=== PATIENT | male | born 1980 | race Caucasian/White ===

== ENCOUNTER 2018-02-17 00:53 | Observation (INO) | payer OTHER, MEDICAID ==
[2018-02-17 00:54] VITALS: BMI 25.7
--- NOTE | 2018-02-17 01:12 | ED PDOC ---
Arrival/HPI - General Time Seen by Provider: 02/17/18 00:57 Historian: Patient - History of Present Illness Narrative History of Present Illness (Text): 02/17/18 01:12 Chalino Oquendo is a 37 year old male, whose past medical history includes sickle cell disease, who presents to the Emergency department complaining of diffuse body pain since 20:30. Patient states symptoms are similar to previous episodes of sickle cell crisis. Patient states his last blood transfusion was over 4 years ago. Patient denies any fever, chills, chest pain, shortness of breath, nausea, vomiting, diarrhea, urinary symptoms, back pain, neck pain, headache, dizziness, or any other complaints. Symptom Onset: Gradual Symptom Course: Unchanged Activities at Onset: Light Context: Home Past Medical History - Provider Review Nursing Documentation Reviewed: Yes - Infectious Disease Hx of Infectious Diseases: None - Tetanus Immunization Tetanus Immunization: Unknown - Reproductive Currently Lactating: No - Cardiac Hx Cardiac Disorders: No - Pulmonary Hx Respiratory Disorders: Yes Hx Pneumonia: Yes - Neurological Hx Neurological Disorder: No - HEENT Hx HEENT Disorder: No - Renal Hx Renal Disorder: No - Endocrine/Metabolic Hx Endocrine Disorders: Yes - Hematological/Oncological Hx Blood Disorders: Yes Hx Anemia: Yes (sickle cell anemia) Hx Sickle Cell Disease: Yes - Integumentary Hx Dermatological Disorder: No - Musculoskeletal/Rheumatological Hx Musculoskeletal Disorders: No Hx Falls: No - Gastrointestinal Hx Gastrointestinal Disorders: Yes Hx Gall Bladder Disease: Yes - Genitourinary/Gynecological Hx Genitourinary Disorders: No - Psychiatric Hx Psychophysiologic Disorder: No Hx Substance Use: No - Past Surgical History Past Surgical History: No Previous - Surgical History Hx Appendectomy: Yes Hx Cholecystectomy: Yes Hx Splenectomy: Yes - Anesthesia Hx Anesthesia: No Hx Anesthesia Reactions: No Hx Malignant Hyperthermia: No - Suicidal Assessment Feels Threatened In Home Enviroment: No Family/Social History - Physician Review Nursing Documentation Reviewed: Yes Family/Social History: Unknown Family HX Smoking Status: Never Smoked Hx Alcohol Use: No Hx Substance Use: No Hx Substance Use Treatment: No Allergies/Home Meds Allergies/Adverse Reactions: Allergies cefotaxime [From Claforan] Adverse Reaction (Verified 02/17/18 01:14) RASH ceftriaxone [From Rocephin] Adverse Reaction (Verified 02/17/18 01:14) RASH hydromorphone [From Dilaudid] Adverse Reaction (Verified 02/17/18 01:14) REDNESS meperidine [From Demerol] Adverse Reaction (Verified 02/17/18 01:14) RASH shellfish derived Adverse Reaction (Verified 02/17/18 01:14) RASH Home Medications: Home Meds Medication Instructions Recorded Confirmed No Known Home Med 02/17/18 02/17/18 Review of Systems - Physician Review All systems were reviewed & negative as marked: Yes - Review of Systems Constitutional: Normal. absent: Fevers Eyes: Normal ENT: Normal Respiratory: Normal. absent: SOB, Cough Cardiovascular: Normal. absent: Chest Pain Gastrointestinal: Normal. absent: Abdominal Pain, Diarrhea, Nausea, Vomiting Genitourinary Male: Normal. absent: Dysuria, Frequency, Hematuria Musculoskeletal: Myalgias (+diffuse body aches). absent: Back Pain, Neck Pain Skin: Normal. absent: Rash Neurological: Normal. absent: Headache, Dizziness Endocrine: Normal Hemo/Lymphatic: Normal Psychiatric: Normal Physical Exam Vital Signs Reviewed: Yes Vital Signs Temp Pulse Resp BP Pulse Ox 02/17/18 01:03 98.0 F 75 18 131/51 L 97 Temperature: Afebrile Blood Pressure: Normal Pulse: Regular Respiratory Rate: Normal Appearance: Positive for: Well-Appearing, Non-Toxic, Comfortable Pain Distress: None Mental Status: Positive for: Alert and Oriented X 3 - Systems Exam Head: Present: Atraumatic, Normocephalic Pupils: Present: PERRL Extroacular Muscles: Present: EOMI Conjunctiva: Present: Normal Mouth: Present: Moist Mucous Membranes Neck: Present: Normal Range of Motion Respiratory/Chest: Present: Clear to Auscultation, Good Air Exchange. No: Respiratory Distress, Accessory Muscle Use Cardiovascular: Present: Regular Rate and Rhythm, Normal S1, S2. No: Murmurs Abdomen: No: Tenderness, Distention, Peritoneal Signs Back: Present: Normal Inspection Upper Extremity: Present: Normal Inspection. No: Cyanosis, Edema Lower Extremity: Present: Normal Inspection. No: Edema Neurological: Present: GCS=15, CN II-XII Intact, Speech Normal Skin: Present: Warm, Dry, Normal Color. No: Rashes Psychiatric: Present: Alert, Oriented x 3, Normal Insight, Normal Concentration Medical Decision Making ED Course and Treatment: 02/17/18 01:12 Impression: 37 year old male complaining of diffuse body pain since 20:30. Plan: -- EKG -- Chest X-ray -- Labs -- IV fluids -- Benadryl -- Morphine -- Reassess and disposition Progress Notes: 02/17/18 01:50 Chest X-ray reviewed, shows no acute processes. 02/17/18 02:[address] Squires, who is aware and agrees with plan. Accepts pt in to her service. [facility] will go to 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 02/17/18 03:37 Reviewed EKG, sinus bradycardia at [address]-segment elevations or dep ressions, no T-wave inversions, normal intervals. - Lab Interpretations I have reviewed the lab results: Yes - RAD Interpretation Substance Abuse Rn: ED Physician - EKG Interpretation Interpreted by ED Physician: Yes Type: 12 lead EKG - Scribe Statement The provider has reviewed the documentation as recorded by the Scribdella Anderson Provider Scribe Attestation: All medical record entries made by the Scribe were at my direction and personally dictated by me. I have reviewed the chart and agree that the record accurately reflects my personal performance of the history, physical exam, medical decision making, and the department course for this patient. I have also personally directed, reviewed, and agree with the discharge instructions and disposition. Disposition/Present on Arrival - Present on Arrival Any Indicators Present on Arrival: No History of DVT/PE: No History of Uncontrolled Diabetes: No Urinary Catheter: No History Surgical Site Infection Following: None - Disposition Have Diagnosis and Disposition been Completed?: Yes Diagnosis: Sickle cell crisis Disposition: HOSPITALIZED Disposition Time: 03:00 Condition: FAIR
[2018-02-17] MEDS ORDERED: DiphenhydrAMINE 50 mg/ml Inj IVP ONE (01:16)
[2018-02-17] MEDS ORDERED: Morphine 4 mg/ml ISec IVP STA (01:17)
[2018-02-17 01:35] LABS: BASO # 0.05 K/mm3 (0.0-2.0); BASO % 0.6 % (0.0-3.0); EOS # 0.2 (0.0-0.7); EOS % 2.1 % (1.5-5.0); GRAN # 3.58 (1.4-6.5); GRAN % 40.3 % (50.0-68.0); HEMOGLOBIN 8.2 g/dL (14.0-18.0); LYMPH # 3.5 (1.2-3.4); MEAN CELL VOLUME 109.6 fl (80.0-105.0); MEAN CORPUSCULAR HEMOGLOBIN 39.4 pg (25.0-35.0); MONO # 1.6 (0.1-0.6); RBC 2.08 10^6/uL (3.5-6.1); RED CELL DISTRIBUTION WIDTH 17.1 % (11.5-14.5); WHITE BLOOD COUNT 8.9 10^3/ul (4.5-11.0)
[2018-02-17] MEDS: Sodium Chloride 0.9% 1,000 ML IV SCH ×2 (01:38→18:18)
[2018-02-17 01:42] LABS: ALB/GLOB RATIO 1.3 (1.1-1.8); ALBUMIN 4.7 g/dL (3.0-4.8); ALT/SGPT 51 U/L (7-56); AST/SGOT 83 U/L (17-59); BLOOD UREA NITROGEN 15 mg/dL (7-21); CALCIUM 8.7 mg/dL (8.4-10.5); GFR NON-AFRICAN AMERICAN > 60
[2018-02-17 01:54] LABS: INR 1.19; PARTIAL THROMBOPLASTIN TIME 24.5 Seconds (25.1-36.5); PROTHROMBIN TIME 13.6 SECONDS (9.4-12.5)
[2018-02-17] MEDS ORDERED: Sodium Chloride 0.9% 1,000 ML IV STA (02:51)
[2018-02-17] MEDS: DiphenhydrAMINE 50 mg/ml Inj IVP SCH (03:59)
[2018-02-17] MEDS: Morphine 2 mg/ml ISec IVP PRN ×3 (03:59→18:19)
--- NOTE | 2018-02-17 08:52 | RAD ---
Date of service: 02/17/2018 HISTORY: body pain COMPARISON: No prior. FINDINGS: LUNGS: No active pulmonary disease. PLEURA: No significant pleural effusion identified, no pneumothorax apparent. CARDIOVASCULAR: Prominent appearing cardiac silhouette reiterated. No pulmonary vascular congestion. OSSEOUS STRUCTURES: No significant abnormalities. VISUALIZED UPPER ABDOMEN: Normal. OTHER FINDINGS: None. IMPRESSION: Stable cardiomegaly. No pulmonary vascular congestion infiltrate or pleural effusion identified.
--- NOTE | 2018-02-17 09:58 | CARD ---
APPROVED REPORT Date of service: 02/17/2018 EKG Measurement Heart [id number] MT [id number] <Conclusion> Sinus bradycardia Otherwise normal ECG
[2018-02-17 15:41] VITALS: RESP 18
[2018-02-18] MEDS: Morphine 2 mg/ml ISec IVP PRN (02:06)
[2018-02-18] MEDS: DiphenhydrAMINE 50 mg/ml Inj IVP SCH (05:40)
[2018-02-18] MEDS: Sodium Chloride 0.9% 1,000 ML IV SCH (05:40)
[2018-02-18 07:36] LABS: HEMOGLOBIN 8.1 g/dL (14.0-18.0); MEAN CELL VOLUME 111.1 fl (80.0-105.0); MEAN CORPUSCULAR HEMOGLOBIN 39.1 pg (25.0-35.0); MEAN CORPUSCULAR HGB CONC 35.2 g/dl (31.0-37.0); MEAN PLATELET VOLUME 9.2 fl (7.0-11.0); RBC 2.07 10^6/uL (3.5-6.1); RED CELL DISTRIBUTION WIDTH 17.2 % (11.5-14.5); WHITE BLOOD COUNT 11.8 10^3/ul (4.5-11.0)
[2018-02-18 07:48] LABS: BLOOD UREA NITROGEN 8 mg/dL (7-21); CALCIUM 9.2 mg/dL (8.4-10.5); GFR NON-AFRICAN AMERICAN > 60; HDL CHOLESTEROL 29 mg/dL (29-60); IRON 101 ug/dL (45-180)
[2018-02-18 07:58] LABS: % IRON SATURATION 28 % (20-55); LDL CHOLESTEROL 54 mg/dL (0-129); TOTAL IRON BINDING CAPACITY 358 ug/dL (261-462)
[2018-02-18] MEDS ORDERED: Multivitamin Vitamin B Complex (Nephro-Vite) Tab PO SCH (08:00)
--- NOTE | 2018-02-18 09:25 | HP ---
Patient was seen and examined on the bedside on 02/17/2018. CHIEF COMPLAINT: Bodyaches, especially extremities. HISTORY OF PRESENT ILLNESS: Mr. Chalino Oquendo is a 37-year-old my private patient with past medical history of sickle cell disease, came to the Emergency Department complaining of diffuse body pain since one day. Patient states symptoms are similar as previous episodes of sickle cell crisis. Patient states that his last blood transfusion was 4 years ago. Patient denies any fever, chills, chest pain, shortness of breath, nausea, vomiting, diarrhea, urinary symptoms, but he is complaining about pain everywhere especially upper extremity and lower extremity and even abdominal pain. Patient's sister and girlfriend were sitting on the bedside. Length of time discussion done and all questions answered. PAST MEDICAL HISTORY: Sickle cell disease, history of pneumonia, anemia, history of cholecystectomy, appendectomy, splenectomy. HABITS: Never smoked. No drug. No ethanol. ALLERGIES: PATIENT IS ALLERGIC WITH CEFOTAXIME, CEFTRIAXONE, HYDROMORPHONE, MEPERIDINE, AND SHELLFISH. HOME MEDICATIONS: Denied. Patient is not taking any medications right now. REVIEW OF SYSTEMS: Patient was seen and examined on the bedside. Patient's girlfriend and sister were sitting on the bedside also. Complaining about pain in all 4 extremities. No fever. No shortness of breath or coughing. No chest pain. Complaining about abdominal pain, but no nausea, vomiting, or diarrhea. No dysuria. No frequency. No hematuria. Abdominal pain is diffuse. PHYSICAL EXAMINATION: VITAL SIGNS: Temperature 98, pulse 75, respiratory rate 18, blood pressure 130/50, pulse oximetry 97%. HEENT: Head: Normocephalic, atraumatic. Eyes: PERRLA. Extraocular movements intact. Conjunctivae clear. Nose patent. Mucous membranes moist. NECK: Supple. No carotid bruit. No JVD or thyromegaly. CHEST: Bilaterally symmetrical. HEART: S1 and S2 positive. LUNGS: Clear to auscultation. ABDOMEN: Soft. Bowel sounds present. No organomegaly. EXTREMITIES: No edema. No cyanosis. NEUROLOGIC: Patient is awake and alert. Moving all 4 extremities. No focal deficit. LABORATORY DATA: White blood cells 8.9, hemoglobin 8.2, hematocrit 22.8, platelets 538. Sodium 136, potassium 3.9, BUN 50, creatinine 0.9, glucose 94, AST 53. ASSESSMENT AND PLAN: Mr. Chalino Oquendo is a 37-year-old male with anemia, thrombocytosis. Prothrombin time and partial thromboplastin time higher. Abnormal liver function test. History of sickle cell disease, sickle cell crisis, history of cholecystectomy, appendectomy, and splenectomy. Chest x-ray done. Stable cardiomegaly. No pulmonary vascular congestion, infiltrates, or pleural effusion identified. Electrocardiogram was also noted by me. Getting pain medication and hydration. We will repeat labs. Meanwhile, continue present treatment. We will follow up. Reina Squires MD
[2018-02-18 13:35] LABS: FOLATE > 20.0 ng/mL
[2018-02-18 15:18] VITALS: BP 92/52; PULSE 77; TEMP 98.2; O2SAT 98
== END 2018-02-18 21:25 | disposition home or self-care (01) ==
LOC: ED 00:53 → ERH 02:51 → 5RSO 05:41
PROVIDERS: ADMIT Internal Medicine; ATTEND Internal Medicine
DX: D57.00 Hb-SS disease with crisis, unspecified (principal); I51.7 Cardiomegaly; R94.5 Abnormal results of liver function studies; R79.89 Other specified abnormal findings of blood chemistry; Z90.81 Acquired absence of spleen; Z87.01 Personal history of pneumonia (recurrent)
CPT/HCPCS: 36415; 71045; 80048; 80053; 80061; 82607; 82746; 83036; 83540; 83550; 84443; 85025; 85027; 85610; 85730; 93005; 96361; 96374; 96375; 96376; 99285; G0378; J1200; J2270; J7030

== ENCOUNTER 2018-02-23 13:35 | Inpatient (IN) | payer OTHER, MEDICAID ==
[2018-02-23 13:37] VITALS: BMI 25.7
[2018-02-23] MEDS ORDERED: Morphine 4 mg/ml ISec IVP STA (13:56)
--- NOTE | 2018-02-23 14:04 | ED PDOC ---
Arrival/HPI - General Chief Complaint: Chest Pain Time Seen by Provider: 02/23/18 13:42 Historian: Patient - History of Present Illness Narrative History of Present Illness (Text): 02/23/18 13:57 37 year old male, with past medical history of sickle cell disease, presents to the Emergency Department complaining of chest pain associated with cough since Wednesday pt saw pmd sent to er Patient reports visiting Dr. Squires with the p resented symptoms, who subsequently referred him to the Emergency Department for medical evaluation. Patient denies any fever, chills, nausea, vomiting, diarrhea, abdominal pain, shortness of breath, headache, dizziness, neck pain, or any other complaints. PMD: Dr. Squires 02/23/18 15:59 Time/Duration: < week Symptom Onset: Gradual Symptom Course: Unchanged Quality: Aching Activities at Onset: Light Context: Home Past Medical History - Provider Review Nursing Documentation Reviewed: Yes - Infectious Disease Hx of Infectious Diseases: None - Tetanus Immunization Tetanus Immunization: Unknown - Reproductive Currently Lactating: No - Cardiac Hx Cardiac Disorders: No - Pulmonary Hx Respiratory Disorders: Yes Hx Pneumonia: Yes - Neurological Hx Neurological Disorder: No - HEENT Hx HEENT Disorder: No - Renal Hx Renal Disorder: No - Endocrine/Metabolic Hx Endocrine Disorders: Yes - Hematological/Oncological Hx Blood Disorders: Yes Hx Anemia: Yes (sickle cell anemia) Hx Sickle Cell Disease: Yes - Integumentary Hx Dermatological Disorder: No - Musculoskeletal/Rheumatological Hx Musculoskeletal Disorders: No Hx Falls: No - Gastrointestinal Hx Gastrointestinal Disorders: Yes Hx Gall Bladder Disease: Yes - Genitourinary/Gynecological Hx Genitourinary Disorders: No - Psychiatric Hx Psychophysiologic Disorder: No Hx Substance Use: No - Past Surgical History Past Surgical History: No Previous - Surgical History Hx Appendectomy: Yes Hx Cholecystectomy: Yes Hx Splenectomy: Yes - Anesthesia Hx Anesthesia: No Hx Anesthesia Reactions: No Hx Malignant Hyperthermia: No - Suicidal Assessment Feels Threatened In Home Enviroment: No Family/Social History - Physician Review Nursing Documentation Reviewed: Yes Family/Social History: No Known Family HX Smoking Status: Never Smoked Hx Alcohol Use: No Hx Substance Use: No Hx Substance Use Treatment: No Allergies/Home Meds Allergies/Adverse Reactions: Allergies cefotaxime [From Claforan] Adverse Reaction (Verified 02/17/18 01:14) RASH ceftriaxone [From Rocephin] Adverse Reaction (Verified 02/17/18 01:14) RASH hydromorphone [From Dilaudid] Adverse Reaction (Verified 02/17/18 01:14) REDNESS meperidine [From Demerol] Adverse Reaction (Verified 02/17/18 01:14) RASH shellfish derived Adverse Reaction (Verified 02/17/18 01:14) RASH Home Medications: Home Meds Medication Instructions Recorded Confirmed RX: No Known Home Med 02/17/18 02/17/18 Review of Systems - Physician Review All systems were reviewed & negative as marked: Yes - Review of Systems Constitutional: absent: Fevers Respiratory: Cough. absent: SOB Cardiovascular: Chest Pain Gastrointestinal: absent: Abdominal Pain, Diarrhea, Nausea, Vomiting Musculoskeletal: Back Pain. absent: Neck Pain Skin: absent: Rash Neurological: absent: Headache, Dizziness Physical Exam Pulse: Regular Appearance: Positive for: Well-Appearing, Non-Toxic, Comfortable Pain Distress: None Mental Status: Positive for: Alert and Oriented X 3 - Systems Exam Head: Present: Atraumatic, Normocephalic Pupils: Present: PERRL Extroacular Muscles: Present: EOMI Conjunctiva: Present: Normal Mouth: Present: Moist Mucous Membranes Neck: Present: Normal Range of Motion Respiratory/Chest: Present: Clear to Auscultation, Good Air Exchange. No: Respiratory Distress, Accessory Muscle Use Cardiovascular: Present: Regular Rate and Rhythm, Normal S1, S2. No: Murmurs Abdomen: No: Tenderness, Distention, Peritoneal Signs Back: Present: Normal Inspection Upper Extremity: Present: Normal Inspection. No: Cyanosis, Edema Lower Extremity: Present: Normal Inspection. No: Edema Neurological: Present: GCS=15, CN II-XII Intact, Speech Normal Skin: Present: Warm, Dry, Normal Color. No: Rashes Psychiatric: Present: Alert, Oriented x 3, Normal Insight, Normal Concentration Medical Decision Making ED Course and Treatment: 02/23/18 13:54 Impression: 37 year old male presents to the Emergency Department complaining of chest pain associated with cough. Differential Diagnosis included but are not limited to: chest pain ro acute chest syndrome vs ss crsiis. Plan: -- EKG -- Labs -- Chest X-ray -- Morphine -- Urinalysis -- Reassess and disposition Prior Visits: Notes and results from previous visits were reviewed. Progress Notes: 02/23/18 13:54 EKG: Ordered, reviewed, and independently interpreted the EKG. Rate : 77 BPM Rhythm : NSR Interpretation : PVCs. Non-specific ST/T wave changes. 02/23/18 16:00 dimer neg cxr neg. nlikely cardiac etiology stable for floor. - RAD Interpretation Radiology Orders: 02/23/18 13:54 CHEST PORTABLE [RAD] Stat - EKG Interpretation Interpreted by ED Physician: Yes Type: 12 lead EKG - Scribe Statement The provider has reviewed the documentation as recorded by the Scribe Leora Talamantes. All medical record entries made by the Scribe were at my direction and personally dictated by me. I have reviewed the chart and agree that the record accurately reflects my personal performance of the history, physical exam, medical decision making, and the department course for this patient. I have also personally directed, reviewed, and agree with the discharge instructions and disposition. Disposition/Present on Arrival - Present on Arrival Any Indicators Present on Arrival: No History of DVT/PE: No History of Uncontrolled Diabetes: No Urinary Catheter: No History of Decub. Ulcer: No History Surgical Site Infection Following: None - Disposition Have Diagnosis and Disposition been Completed?: Yes Diagnosis: Sickle cell, Sickle cell crisis Disposition: HOSPITALIZED Disposition Time: 16:00 Condition: STABLE Forms: Decision Pace (Cypriot)
[2018-02-23 14:30] LABS: BASO # 0.05 K/mm3 (0.0-2.0); BASO % 0.4 % (0.0-3.0); EOS # 0.1 (0.0-0.7); EOS % 0.8 % (1.5-5.0); GRAN # 8.61 (1.4-6.5); GRAN % 64.9 % (50.0-68.0); LYMPH # 2.7 (1.2-3.4); LYMPH % 20.6 % (22.0-35.0); MEAN CELL VOLUME 110.9 fl (80.0-105.0); MEAN CORPUSCULAR HEMOGLOBIN 39.6 pg (25.0-35.0); MEAN CORPUSCULAR HGB CONC 35.7 g/dl (31.0-37.0); MEAN PLATELET VOLUME 9.6 fl (7.0-11.0); MONO # 1.8 (0.1-0.6); MONO % 13.3 % (1.0-6.0); PLATELET COUNT 241 10^3/uL (120.0-450.0); RBC 2.02 10^6/uL (3.5-6.1); RED CELL DISTRIBUTION WIDTH 17.4 % (11.5-14.5); WHITE BLOOD COUNT 13.3 10^3/ul (4.5-11.0)
[2018-02-23 14:36] LABS: TOTAL NUMBER OF RETICS COUNTED 0 (0.5-4.0)
[2018-02-23 14:38] LABS: ALB/GLOB RATIO 1.3 (1.1-1.8); ALBUMIN 4.6 g/dL (3.0-4.8); ALT/SGPT 34 U/L (7-56); AST/SGOT 58 U/L (17-59); BLOOD UREA NITROGEN 9 mg/dL (7-21); GFR NON-AFRICAN AMERICAN > 60
[2018-02-23 14:42] LABS: INR 1.21; PROTHROMBIN TIME 13.8 SECONDS (9.4-12.5)
[2018-02-23 14:43] LABS: PARTIAL THROMBOPLASTIN TIME 20.4 Seconds (25.1-36.5)
[2018-02-23 14:46] LABS: TROPONIN I < 0.01 ng/mL
[2018-02-23 15:22] LABS: EOSINOPHIL 1 % (0.0-3.0); LYMPHOCYTE 20 % (22.0-35.0); MONOCYTE 9 % (1.0-6.0); NEUTROPHIL 70 % (50.0-70.0)
[2018-02-23 15:23] LABS: ANISOCYTOSIS 1+; HYPOCHROMIA SLIGHT; MICROCYTOSIS 1+; PLATELET ESTIMATE NORMAL (NORMAL); POLYCHROMASIA SLIGHT; SICKLE CELLS 2+
--- NOTE | 2018-02-23 15:54 | RAD ---
Date of service: 02/23/2018 HISTORY: Chest pain COMPARISON: 02/17/2018. FINDINGS: LUNGS: No active pulmonary disease. PLEURA: No significant pleural effusion identified, no pneumothorax apparent. CARDIOVASCULAR: Normal. OSSEOUS STRUCTURES: No significant abnormalities. VISUALIZED UPPER ABDOMEN: Normal. OTHER FINDINGS: None. IMPRESSION: No active disease. No significant interval change compared to the prior examination(s).
[2018-02-23] MEDS ORDERED: HYDROmorphone 0.5 mg/0.5 ml ISec IVP PRN (19:02)
[2018-02-23] MEDS ORDERED: Morphine 2 mg/ml ISec IVP PRN ×2 (21:21→21:22)
[2018-02-23] MEDS: Sodium Chloride 0.9% 1,000 ML IV SCH (21:23)
[2018-02-23] MEDS: oxyCODONE 10 mg ER Tab (oxyCONTIN) PO SCH (21:37)
[2018-02-23 23:07] LABS: URINE BILIRUBIN NEGATIVE (NEGATIVE); URINE BLOOD NEGATIVE (NEGATIVE); URINE GLUCOSE (UA) NEGATIVE (NEGATIVE); URINE LEUKOCYTE ESTERASE NEGATIVE Leu/uL (NEGATIVE); URINE PROTEIN NEGATIVE mg/dL (<30 mg/dL); URINE UROBILINOGEN 0.2 E.U./dL (<1 E.U./dL)
[2018-02-23 23:13] LABS: URINE APPEARANCE CLEAR (CLEAR); URINE COLOR YELLOW (YELLOW)
[2018-02-23] MEDS ORDERED: Morphine 2 mg/ml ISec IVP STA (23:50)
[2018-02-24] MEDS: oxyCODONE 10 mg ER Tab (oxyCONTIN) PO SCH ×2 (09:30→21:30)
--- NOTE | 2018-02-24 10:57 | CARD ---
APPROVED REPORT Date of service: 02/23/2018 EKG Measurement Heart [id number] <Conclusion> Sinus rhythm with occasional premature ventricular complexes Moderate voltage criteria for LVH, may be normal variant Borderline ECG
[2018-02-24] MEDS ORDERED: Albuterol-Ipratrop 3 mg / 0.5 (3 ml) UD IH STA (13:02)
[2018-02-24] MEDS: Sodium Chloride 0.9% 1,000 ML IV SCH ×2 (13:17→17:15)
[2018-02-24] MEDS: Morphine 2 mg/ml ISec IVP PRN ×2 (14:59→21:29)
[2018-02-24] MEDS: Albuterol-Ipratrop 3 mg / 0.5 (3 ml) UD IH SCH ×2 (15:32→19:43)
[2018-02-25] MEDS: Albuterol-Ipratrop 3 mg / 0.5 (3 ml) UD IH SCH ×4 (01:02→20:19)
--- NOTE | 2018-02-25 01:51 | CON ---
DATE: 02/24/2018 HEMATOLOGY CONSULTATION HISTORY OF PRESENT ILLNESS: This is a 37-year-old man with sickle cell anemia. I have known him for many years. I have not seen him in 4 years. He is now being transferred to the care at [facility], under Dr. Meek and also Dr. Ruchi Martinez. He is on hydroxyurea 500 mg t.i.d. and has been basically doing pretty well. About couple of days ago, he was having cough and fever, followed by generalized muscle aches and pains in his back and the sternum, chest area and was brought into the hospital. PHYSICAL EXAMINATION: SKIN: No petechiae. No bruises. HEENT: Anicteric. NODES: None palpable in the axillary, cervical, supraclavicular, or inguinal regions. LUNGS: Shows diffuse rhonchi and scattered wheezing as well and quite congested. HEART: S1 and S2. ABDOMEN: Shows no liver, no spleen, no tenderness. EXTREMITIES: No edema. ROOFING APPLICATOR: No focal findings. LABORATORY DATA: Hemoglobin is 8, retic count is about 8%, white count is adequate and platelets are adequate here too. He also had liver function tests. ASSESSMENT: I do not think this is emboli or infarction. It is more likely this is an infection. He is getting antibiotics. He is going to get inhalers. We will see how he does and follow up from there. Chau Chin MD
[2018-02-25] MEDS: Sodium Chloride 0.9% 1,000 ML IV SCH ×3 (04:04→21:56)
[2018-02-25 06:23] LABS: HEMOGLOBIN 7.1 g/dL (14.0-18.0); MEAN CELL VOLUME 110.4 fl (80.0-105.0); MEAN CORPUSCULAR HGB CONC 35.3 g/dl (31.0-37.0); MEAN PLATELET VOLUME 9.7 fl (7.0-11.0); RBC 1.82 10^6/uL (3.5-6.1); RED CELL DISTRIBUTION WIDTH 16.9 % (11.5-14.5); WHITE BLOOD COUNT 8.9 10^3/ul (4.5-11.0)
[2018-02-25 07:58] LABS: BLOOD UREA NITROGEN 6 mg/dL (7-21); CALCIUM 8.4 mg/dL (8.4-10.5); GFR NON-AFRICAN AMERICAN > 60
--- NOTE | 2018-02-25 10:03 | HP ---
The patient is a 37-year-old male. Patient was seen and examined at the bedside on 02/24/2018. HISTORY OF PRESENT ILLNESS: Mr. Chalino Oquendo is 37 years old, my private patient with past medical history of sickle cell disease, came to the emergency department complaining of chest pain, shortness of breath, coughing with phlegm, started Wednesday when patient actually came in my office, when I heard his chest wheezing, shortness of breath, I send him to [facility]. Patient denies any fever or chills. No nausea, vomiting or diarrhea. No hematuria. No hematochezia. Still having shortness of breath and whole body ache. PAST MEDICAL HISTORY: Cholecystectomy, history of pneumonia, sickle cell disease, sickle cell anemia, history of splenectomy. FAMILY HISTORY: Father and mother, noncontributory. HABITS: Never smoked. No drugs. No ethanol. ALLERGIES: HE IS ALLERGIC WITH CEFOTAXIME, CEFTRIAXONE, HYDROMORPHONE, MEPERIDINE, SHELLFISH. HOME MEDICATIONS: Reviewed by me. Hydroxyurea, folic acid, OxyContin, oxycodone. REVIEW OF SYSTEMS: The patient was seen and examined on the bedside. Mother was sitting on the bedside, still complaining about shortness of breath, chest pain, body aches, coughing with green phlegm. No fever. No chills. No nausea, vomiting or diarrhea. PHYSICAL EXAMINATION: VITAL SIGNS: Temperature 98.2, pulse 56, respiratory rate 18, blood pressure 99/64. HEENT: Head: Normocephalic, atraumatic. Eyes: PERRLA. Extraocular movements intact. Conjunctivae clear. Nose patent. Mucous membranes moist. NECK: Supple. No carotid bruit. No JVD or thyromegaly. CHEST: Bilaterally symmetrical. HEART: S1 and S2 positive. LUNGS: Clear to auscultation. ABDOMEN: Soft. Bowel sounds positive. No organomegaly. EXTREMITIES: No edema. No cyanosis. NEUROLOGIC: Patient is awake and alert. Moving all 4 extremities. No focal deficit. LABORATORY DATA: White blood cell 13.3, hemoglobin 8, hematocrit 22.4, platelets 241. Sodium 140, potassium 3.6, BUN 9, creatinine 0.8. Glucose 110. Bilirubin 2.6. Lactate dehydrogenase 1498. ASSESSMENT AND PLAN: Mr. Chalino Oquendo is a 37-year-old male with leukocytosis, anemia, hyperbilirubinemia, urine is clear, got admission with chest pain, shortness of breath, sickle cell crisis. We admitted the patient, started on Benadryl, DuoNeb , folic acid, hydroxyurea, morphine, OxyContin, normal saline. Discussion done with Dr. Chin, the patient's pt sitter. Gastrointestinal and deep venous thrombosis prophylaxes. Repeat labs. Discussion done with the mother also. Reina Squires MD
[2018-02-25] MEDS: oxyCODONE 10 mg ER Tab (oxyCONTIN) PO SCH ×2 (10:12→21:48)
--- NOTE | 2018-02-25 11:29 | CT ---
Date of service: 02/25/2018 PROCEDURE: CT Chest without contrast HISTORY: pul. infiltrate COMPARISON: None available. TECHNIQUE: Contiguous axial images were obtained through the chest without intravenous contrast enhancement. Sagittal and coronal reconstructions were performed. Radiation dose: Total exam DLP = 190.62 mGy-cm. This CT exam was performed using one or more of the following dose reduction techniques: Automated exposure control, adjustment of the mA and/or kV according to patient size, and/or use of iterative reconstruction technique. FINDINGS: LUNGS: Linear infiltrates are seen in both lung bases right greater than left. The previous study from 2014 showed extensive bilateral consolidation. The current findings could represent scarring MEDIASTINUM: Unremarkable thoracic aorta. No aneurysm. Normal sized heart. Main pulmonary artery unremarkable. No vascular congestion. No lymphadenopathy. No atherosclerotic calcification or mural plaque present. PLEURA: No pleural fluid. No pneumothorax. BONES: No fracture. No destructive lesion. UPPER ABDOMEN: Grossly unremarkable. OTHER FINDINGS: None. IMPRESSION: Linear infiltrates are seen in both lung bases right greater than left. The previous study from 2014 showed extensive bilateral consolidation. The current findings could represent scarring
[2018-02-25] MEDS: Morphine 2 mg/ml ISec IVP PRN ×2 (14:24→20:23)
--- NOTE | 2018-02-25 22:32 | CON ---
DATE: 02/24/2018 REFERRING PHYSICIAN: Reina Squires MD REASON FOR CONSULTATION: Chest pain and shortness of breath. HISTORY OF PRESENT ILLNESS: This is a 37-year-old male, known history of sickle cell. According to patient from the last few days, he had URI symptoms, but now developed shortness of breath and chest pain. No nausea, no vomiting, diarrhea, leg pain, or leg swelling. PAST MEDICAL HISTORY: Pneumonia, sickle cell anemia, history of gastritis, and history of splenectomy. FAMILY HISTORY: No significant cardiopulmonary disease reported. SOCIAL HISTORY: He is nonsmoker and nondrinker. ALLERGIES: TO MULTIPLE MEDICATIONS INCLUDING ROCEPHIN, CLAFORAN, DILAUDID, DEMEROL. ALSO ALLERGIC TO SHELLFISH. MEDICATIONS: He is on Benadryl 25 mg three times a day p.r.n., DuoNeb every 6 hour [id number], folic acid 1 mg daily, hydroxyurea 500 mg three times a day, morphine 1 mg every 6 hours p.r.n., Oxycodone which is OxyContin extended release 10 mg twice a day, also on IV fluid normal saline 100 mL per hour. REVIEW OF SYSTEMS: No headache. No rhinitis. Mild cough, shortness of breath, and pleuritic pain. No nausea, no vomiting, no diarrhea, leg pain, or leg swelling. PHYSICAL EXAMINATION: GENERAL: Lying in the bed, mild distress secondary to cough and shortness of breath. VITAL SIGNS: Temp is 98, heart rate 66, respiratory rate is 20, blood pressure 99/64, pulse ox 96% on room air. HEENT: Moist mucous membrane. No ulcer or thrush noted. Neck: Supple. No JVD. Lungs: Have a few crackles at the bases. HEART: S1 and S2. ABDOMEN: Soft and nontender. No organomegaly. EXTREMITIES: There is no edema. NEUROLOGIC: Awake and follows simple commands. LABORATORY DATA: Shows hemoglobin 8.0, hematocrit 22.4, WBC of 13.3, platelet count is 241. INR 1.21. PTT is 20, and D-dimer is 230. Sodium 140, potassium 3.6, chloride 106, bicarbonate 23, BUN 9, creatinine 0.8, glucose 110, calcium is 9.0, magnesium 1.82, total bilirubin 2.6, AST 58, ALT 34, alk phos is 89, and LDH 1498. Troponin less than 0.01. Albumin is 4.6. Chest x-ray done in the ER shows no infiltrate reported. IMPRESSION AND PLAN: Sickle cell crisis with probably lung involvement. We will get CT of the chest. Add doxycycline 100 mg twice a day, also add inhaled bronchodilator. Continue morphine and OxyContin. Continue IV fluid. Follow up labs in the morning. Thank you and we will follow with you. Belkis Roy MD
--- NOTE | 2018-02-25 23:47 | PN ---
DATE: 02/25/2018 PULMONARY PROGRESS NOTE REFERRING PHYSICIAN: Reina Squires MD SUBJECTIVE: The patient is sitting up in the bed. Family is at bedside. Night was unremarkable. Still have a chest pain, upper extremity pain. No nausea, no vomiting, no diarrhea. OBJECTIVE: GENERAL: No acute distress. VITAL SIGNS: Temperature is 98, heart rate 77, respiratory rate is 18, blood pressure 88/52, pulse ox 96% on room air. HEENT: Moist mucous membranes. No ulcer or thrush. NECK: Supple. No JVD. LUNGS: Have some crackles at the bases. HEART: S1 and S2. ABDOMEN: Soft, nontender, no organomegaly. EXTREMITIES: No edema. NEUROLOGIC: Awake, alert, follows simple command. MEDICATIONS: He is on Benadryl 25 mg 3 times a day p.r.n., doxycycline 100 mg twice a day, DuoNeb every 6 hours [id number], folic acid 1 mg daily, hydroxyurea 500 mg 3 times a day, morphine sulfate 2 mg every 4 hours p.r.n., OxyContin extended release 10 mg every 12 hours, IV fluid normal saline at 100 mL/hour, Toradol 15 mg every 8 hours. LABORATORY DATA: Shows hemoglobin of 7.1, hematocrit 20.1, WBC 8.9, reticulocyte count is 7.38. Sodium 140, potassium 3.8, chloride 110, bicarbonate 24, BUN 6, creatinine 0.7, glucose 93, calcium is 8.4. CAT scan of the chest is done, which shows linear infiltrate seen in both lung bases, right greater than the left. IMPRESSION AND PLAN: Sickle cell crisis with chest syndrome, muscle pain, anemia. Agree with Dr. Squires with the present management. Continue antibiotics, IV fluid. Gastric prophylaxis, deep venous thrombosis prophylaxis. Follow up labs in the morning. Thank you and we will follow with you. Belkis Roy MD
--- NOTE | 2018-02-26 00:13 | PN ---
DATE: 02/25/2018 SUBJECTIVE: The patient was seen and examined on the bedside on 02/25/2018. Father and mother were on the bedside. Still having pain. Getting IV fluid. No nausea, vomiting, diarrhea. No hematuria or hematochezia. No swelling of the leg. Still having shortness of breath and chest pain. PHYSICAL EXAMINATION: VITAL SIGNS: Temperature 97.8, pulse 77, blood pressure 88/52, respiratory rate 16. HEENT: Head normocephalic, atraumatic. Eyes PERRLA. Extraocular muscles intact. Conjunctivae clear. Nose patent. Mucous membrane moist. NECK: Supple. No carotid bruit. No JVD or thyromegaly. CHEST: Bilaterally symmetrical. HEART: S1 and S2 positive. LUNGS: Clear to auscultation. ABDOMEN: Soft. Bowel sounds positive. No organomegaly. EXTREMITIES: No edema. No cyanosis. NEUROLOGICAL: The patient is awake and alert. Moving all 4 extremities. No focal deficits. MEDICATIONS: Benadryl, doxycycline, DuoNeb, folic acid, hydroxyurea, morphine, oxycodone, NS, Toradol. LABORATORY DATA: White blood cells 8.9, hemoglobin 7.1, hematocrit 20.1, platelets 179. Sodium 140, potassium 3.8, BUN 6, creatinine 0.7, total bilirubin 2.6. ASSESSMENT AND PLAN: Mr. Chalino Oquendo, 37-year-old male with leukocytosis, anemia, hyperchloremia, abnormal liver function test. Came with sickle cell crisis. History of cholecystectomy. Rule out lung involvement. Dr. Roy ordered CAT scan of the chest. Added doxycycline. White blood cells are now trending down. Added inhaled bronchodilator. Continue monitoring oxygenation. Continue IV fluid and labs. D-dimer was 230. The patient needs blood transfusion. Ordered 2 units of packed red blood cells and transfuse, but the patient refused. Discussion done with the patient's mother, father and even sister, Diane on the phone. According to the patient, he wants Dr. Chin and even Dr. Chin's office, covering Dr. Chin also agreed blood transfusion. Still, the patient is refusing. Continue present treatment. Supportive care. We will follow up. Reina Squires MD [facility] # [id number] GREGG
[2018-02-26] MEDS: Albuterol-Ipratrop 3 mg / 0.5 (3 ml) UD IH SCH ×4 (02:16→20:29)
[2018-02-26] MEDS: Morphine 2 mg/ml ISec IVP PRN ×3 (03:29→23:39)
[2018-02-26 07:56] LABS: BASO # 0.03 K/mm3 (0.0-2.0); BASO % 0.4 % (0.0-3.0); EOS # 0.3 (0.0-0.7); EOS % 3.9 % (1.5-5.0); GRAN # 3.45 (1.4-6.5); GRAN % 48.3 % (50.0-68.0); HEMOGLOBIN 7.2 g/dL (14.0-18.0); LYMPH # 2.5 (1.2-3.4); LYMPH % 34.5 % (22.0-35.0); MEAN CELL VOLUME 109.2 fl (80.0-105.0); MEAN CORPUSCULAR HEMOGLOBIN 38.9 pg (25.0-35.0); MEAN CORPUSCULAR HGB CONC 35.6 g/dl (31.0-37.0); MEAN PLATELET VOLUME 10.1 fl (7.0-11.0); MONO # 0.9 (0.1-0.6); MONO % 12.9 % (1.0-6.0); RBC 1.85 10^6/uL (3.5-6.1); RED CELL DISTRIBUTION WIDTH 17.5 % (11.5-14.5); WHITE BLOOD COUNT 7.2 10^3/ul (4.5-11.0)
[2018-02-26 08:04] LABS: BLOOD UREA NITROGEN 11 mg/dL (7-21); CALCIUM 8.6 mg/dL (8.4-10.5); GFR NON-AFRICAN AMERICAN > 60; HDL CHOLESTEROL 31 mg/dL (29-60)
[2018-02-26 08:09] LABS: IRON 164 ug/dL (45-180)
[2018-02-26 08:13] LABS: LDL CHOLESTEROL 50 mg/dL (0-129)
[2018-02-26 08:19] LABS: % IRON SATURATION 56 % (20-55); TOTAL IRON BINDING CAPACITY 292 ug/dL (261-462)
[2018-02-26] MEDS: oxyCODONE 10 mg ER Tab (oxyCONTIN) PO SCH ×2 (09:11→21:05)
[2018-02-26 14:54] LABS: FOLATE > 20.0 ng/mL
--- NOTE | 2018-02-26 18:47 | PN ---
DATE: 02/26/2018 PULMONARY PROGRESS NOTE REFERRING PHYSICIAN: Reina Squires MD. SUBJECTIVE: The patient is lying in bed. Family at bedside. No overnight events reported. Pain has improved. No headache, chest pain, nausea, vomiting, leg swelling reported. OBJECTIVE: VITAL SIGNS: Temperature 98.6, pulse 81, blood pressure 106/62, pulse ox 93% on room air. GENERAL: No acute distress. HEENT: Moist mucous membrane. NECK: Supple. No JVD. LUNGS: Fair airflow, few rhonchi. HEART: S1 and S2. ABDOMEN: Soft, nontender. EXTREMITIES: No edema. NEUROLOGIC: Awake, alert. Follows commands. LABORATORY DATA: Laboratory results reviewed. WBC 7.2, hemoglobin 7.2, hematocrit 20.2, platelet 189. Sodium 141, potassium 4.2, chloride 110, carbon dioxide 24, anion gap 12, BUN 11, creatinine 0.8, calcium 84, magnesium, iron 164, TIBC 282, saturation 56%, triglycerides 64, cholesterol 89, HDL 50, HDL 31. Vitamin B12 of 565. Folate greater than 20. TSH 2.58. MEDICATIONS: Reviewed. Toradol 15 mg IV push every 8 hours. No other changes since yesterday. IMPRESSION AND PLAN: Sickle cell crisis with chest syndrome, muscle pain, anemia. Continue present treatment, he is doing much better. On antibiotics and IV fluid. Gastric prophylaxis, deep venous thrombosis prophylaxis. This patient was examined with Dr. Roy and discussed assessment and plan as described above. Thank you for this consult and we will follow with you. Belgica Hewitt APN Belkis Roy MD [facility]
[2018-02-26] MEDS: Sodium Chloride 0.9% 1,000 ML IV SCH (18:49)
[2018-02-27] MEDS: Albuterol-Ipratrop 3 mg / 0.5 (3 ml) UD IH SCH ×4 (01:04→19:52)
[2018-02-27] MEDS: Morphine 2 mg/ml ISec IVP PRN ×3 (04:29→19:58)
[2018-02-27] MEDS: Sodium Chloride 0.9% 1,000 ML IV SCH ×2 (06:09→13:05)
[2018-02-27 06:53] LABS: BASO # 0.07 K/mm3 (0.0-2.0); BASO % 0.7 % (0.0-3.0); EOS # 0.3 (0.0-0.7); EOS % 3.1 % (1.5-5.0); GRAN # 6.46 (1.4-6.5); GRAN % 63.9 % (50.0-68.0); HEMOGLOBIN 7.9 g/dL (14.0-18.0); LYMPH # 2.2 (1.2-3.4); LYMPH % 21.6 % (22.0-35.0); MEAN CELL VOLUME 105.7 fl (80.0-105.0); MEAN CORPUSCULAR HEMOGLOBIN 37.3 pg (25.0-35.0); MEAN CORPUSCULAR HGB CONC 35.3 g/dl (31.0-37.0); MEAN PLATELET VOLUME 10.1 fl (7.0-11.0); MONO # 1.1 (0.1-0.6); MONO % 10.7 % (1.0-6.0); RBC 2.12 10^6/uL (3.5-6.1); WHITE BLOOD COUNT 10.1 10^3/ul (4.5-11.0)
--- NOTE | 2018-02-27 18:29 | PN ---
DATE: 02/27/2018 PULMONARY PROGRESS NOTE REFERRING PHYSICIAN: Reina Squires MD. SUBJECTIVE: He is lying in the bed, head at 45 degrees. Still has pain, grades about 6/10. Getting morphine 2 mg every 4 hours, but no nausea, no vomiting. Still has a chest pain. No dysuria. No leg pain. No leg swelling. OBJECTIVE: GENERAL: In no acute distress. VITAL SIGNS: Temperature is 98, heart rate is 85, respiratory rate is 18, blood pressure 119/67, pulse ox 94% on nasal cannula. HEENT: Moist mucous membrane. No ulcer or thrush noted. NECK: Supple. No JVD. LUNGS: Have a few crackles. HEART: S1 and S2. ABDOMEN: Soft and nontender. No organomegaly. EXTREMITIES: No edema. NEUROLOGICAL: Awake and alert. Follows simple command. MEDICATIONS: He is on Benadryl 25 mg three times a day p.r.n., doxycycline 100 mg twice a day, DuoNeb every 6 hours, folic acid 1 mg daily, hydroxyurea 500 mg three times a day, morphine 2 mg every 4 hours p.r.n., also getting IV fluid normal saline 100 mL/hour, Toradol 15 mg every 8 hours. LABORATORY DATA: Shows hemoglobin 7.9, hematocrit 22.4, WBC 10.1, platelet count is 198. INR on admission 1.21. IMPRESSION AND PLAN: Sickle cell crisis with acute chest syndrome, also has upper extremity tenderness, anemia. Getting second unit of packed RBCs. On IV fluid. Pain is still not controlled with morphine 2 mg every 4 hours. We will increase to 3 mg every 4 hours. Continue Toradol. Continue antibiotics. Inhaled bronchodilator. Follow up labs in the morning. Thank you and we will follow with you. Belkis Roy MD
[2018-02-28] MEDS: Morphine 2 mg/ml ISec IVP PRN ×4 (00:13→21:30)
[2018-02-28] MEDS: Albuterol-Ipratrop 3 mg / 0.5 (3 ml) UD IH SCH ×4 (01:21→19:52)
--- NOTE | 2018-02-28 01:55 | PN ---
DATE: 02/26/2018 SUBJECTIVE: The patient was seen and examined on the bedside on 02/26/2018. Looking comfortable. Getting blood transfusion. Family was around. No overnight event happened. No headache. No chest pain. No nausea, vomiting, diarrhea. PHYSICAL EXAMINATION: VITAL SIGNS: Temperature 98.6, pulse 81, blood pressure 106/62, pulse oximetry 93% on room air. HEENT: Head normocephalic, atraumatic. NECK: Supple. No carotid bruit. No JVD or thyromegaly. CHEST: Bilaterally symmetrical. HEART: S1 and S2 positive. LUNGS: Clear to auscultation. ABDOMEN: Soft. Bowel sounds positive. No organomegaly. EXTREMITIES: No edema. No cyanosis. NEUROLOGICAL: The patient is awake and alert. Moving all 4 extremities. No focal deficits. LABORATORY DATA: White blood cells WBC 7.2, hemoglobin 7.2, hematocrit 20.2, platelet 189. Sodium 141, potassium 4.2. BUN 11, creatinine 0.8. Triglycerides 64, cholesterol 89. Folate greater than 20. TSH 2.58. MEDICATIONS: Toradol, folic acid. ASSESSMENT AND PLAN: Mr. Chalino Oquendo, is a 37-year-old male with sickle cell crisis with chest syndrome, musculoskeletal pain, anemia. Hemoglobin dropped. The patient is doing better on antibiotics and IV fluid. Gastric prophylaxis, deep venous thrombosis prophylaxis. Got IV fluid. Legal Services Manager is on the case. Repeat labs. We will follow up. Reina Squires MD
[2018-02-28 06:31] LABS: HEMOGLOBIN 8.8 g/dL (14.0-18.0); MEAN CELL VOLUME 103.8 fl (80.0-105.0); MEAN CORPUSCULAR HEMOGLOBIN 37.3 pg (25.0-35.0); MEAN CORPUSCULAR HGB CONC 35.9 g/dl (31.0-37.0); MEAN PLATELET VOLUME 10.2 fl (7.0-11.0); RBC 2.36 10^6/uL (3.5-6.1); RED CELL DISTRIBUTION WIDTH 21.6 % (11.5-14.5); WHITE BLOOD COUNT 12.3 10^3/ul (4.5-11.0)
[2018-02-28 06:48] LABS: BLOOD UREA NITROGEN 12 mg/dL (7-21); CALCIUM 8.6 mg/dL (8.4-10.5); GFR NON-AFRICAN AMERICAN > 60
[2018-02-28] MEDS: Budesonide 0.5 mg/2 ml Inhal Susp UD IH SCH ×2 (09:55→19:52)
[2018-02-28] MEDS: Pantoprazole 40 mg EC Tab PO SCH (10:09)
--- NOTE | 2018-02-28 10:36 | PN ---
DATE: 02/27/2018 SUBJECTIVE: The patient is 37-year-old male. The patient was seen and examined on the bedside on 02/27/2018, looking comfortable. Getting blood transfusion. Sister and girlfriend are sitting on the bedside. Still having chest pressure, body aches, but no fever, no chills. No headache. No dizziness. No hematuria. No hematochezia. PHYSICAL EXAMINATION: VITAL SIGNS: Temperature 98.3, pulse 55, blood pressure 119/67, respiratory rate 18. HEENT: Head: Normocephalic, atraumatic. Eyes: PERRLA. Extraocular muscles intact. Conjunctivae clear. Nose patent. Mucous membrane moist. NECK: Supple. No carotid bruit, JVD, or thyromegaly. CHEST: Bilaterally symmetrical. HEART: S1 and S2 positive. LUNGS: Clear to auscultation. ABDOMEN: Soft. Bowel sounds positive. No organomegaly. EXTREMITIES: No edema. No cyanosis. NEUROLOGIC: The patient is awake, alert. Moving all 4 extremities. No focal deficits. MEDICATIONS: Benadryl, doxycycline, folic acid, hydroxyurea, morphine, NS, Toradol. LABORATORY DATA: White blood cells 10.1, hemoglobin 7.9, hematocrit 22.4, platelets 198. Sodium 141, potassium 4.2, BUN 11, creatinine 0.8, iron saturation 56, bilirubin 2.6. ASSESSMENT AND PLAN: Mr. Chalino Oquendo is a 37-year-old male with severe anemia, got one unit of packed red blood cells yesterday, getting second unit of packed red blood cells today; hyperchloremia; abnormal liver function test; came with sickle cell crisis, seen by the undercutter operator. Maybe due to sickle cell, has chest syndrome. Getting antibiotics, intravenous fluids. History of cholecystectomy. Gastric and deep venous thrombosis prophylaxes. Repeat labs. We will follow up. Reina Squires MD
[2018-02-28] MEDS: Arformoterol 15 mcg/2 ml Inh Sol IH SCH (19:52)
[2018-02-28] MEDS ORDERED: Aztreonam 2 Gm in NS 100mL 100 ML IVPB SCH (22:00)
--- NOTE | 2018-02-28 22:49 | PN ---
DATE: 02/28/2018 PULMONARY PROGRESS NOTE REFERRING PHYSICIAN: Reina Squires MD SUBJECTIVE: He is lying in the bed. Has a continuous pain in the back, chest and the muscle. Increased cough. Developed fever up to 103. No hemoptysis. No hematemesis, hematuria, diarrhea, leg pain or leg swelling. OBJECTIVE: GENERAL: In no acute distress. VITAL SIGNS: Temperature is 103, heart rate is 80, respiratory rate is 20, blood pressure 120/60, pulse ox 95% on 2 L nasal cannula. HEENT: Moist mucous membrane. Crowded airway. NECK: Supple. No JVD. LUNGS: Have crackles. HEART: S1 and S2. ABDOMEN: Soft and nontender. No organomegaly. EXTREMITIES: No edema. NEUROLOGICAL: Awake and alert. Follows simple command. MEDICATIONS: He is on Benadryl 25 mg three times a day p.r.n., Brovana inhaled twice a day, doxycycline 100 mg twice a day, albuterol inhaled every 6 hours, folic acid 1 mg daily, hydroxyurea 500 mg three times a day, morphine 3 mg every 4 hours, Protonix 40 mg daily, Pulmicort inhaled twice a day, Toradol 15 mg every 8 hours, Tylenol p.r.n. basis. LABORATORY DATA: Shows hemoglobin 8.8, hematocrit 24.5, WBC 12.3, platelet count is 212. Sodium 141, potassium 4.2, chloride 112, bicarbonate 22, BUN 12, creatinine 0.7, glucose 83, calcium is 8.6, iron is 164, TIBC 292. Urinalysis is unremarkable. IMPRESSION AND PLAN: Sickle cell crisis with acute chest syndrome, sepsis, anemia. We will increase morphine to 4 mg every 4 hours. We will discontinue doxycycline. We will start the patient on Azactam and vancomycin. Send sputum for culture and sensitivity. Follow up x-rays. Follow up labs in the morning. Thank you and we will follow with you. Belkis Roy MD
--- NOTE | 2018-03-01 01:35 | PN ---
DATE: 02/28/2018 SUBJECTIVE: The patient is seen and examined on the bedside, looking comfortable, having swelling of the face. Father was sitting on the bedside. Discontinued the IV fluid, but later on I heard she has fever of 102, 103. I ordered Tylenol and called ID consult. PHYSICAL EXAMINATION: VITAL SIGNS: Temperature 103, 101.4, 102.5; pulse 80; blood pressure 120/60; respiratory rate 20. HEENT: Head: Normocephalic, atraumatic. Eyes: PERRLA. Extraocular muscles intact. Conjunctivae clear. Nose patent. Mucous membrane moist. NECK: Supple. No carotid bruit. No JVD or thyromegaly. CHEST: Bilaterally symmetrical. HEART: S1 and S2 positive. LUNGS: Clear to auscultation. ABDOMEN: Soft. Bowel sounds present. No organomegaly. EXTREMITIES: No edema. No cyanosis. NEUROLOGIC: The patient is awake and alert, follows simple commands. MEDICATIONS: Azactam, Benadryl, Brovana, doxycycline, DuoNeb, folic acid, hydroxyurea, morphine, Protonix, Pulmicort, Toradol, Tylenol. LABORATORY DATA: White blood cells 12.3, yesterday was 10.1; hemoglobin 8.8; hematocrit 24.9; platelets 212. Sodium 141, potassium 4.2, BUN 12, creatinine 0.7, iron saturation 56, bilirubin 2.4. ASSESSMENT AND PLAN: Mr. Chalino Oquendo is a 37-year-old male with leukocytosis, anemia, abnormal liver function test, came with sickle cell crisis, with acute chest syndrome, has upper extremity tenderness, got 2 units of packed red blood cells. Pain is still not controlled with morphine of 2 every 4 hours, Dr. Roy increased it to 3 mg every 4 hours. Continue Toradol. Continue antibiotics, inhaled bronchodilators. Now I called consult with ID and the septic workup. Gastrointestinal and deep venous thrombosis prophylaxes. Repeat labs. We will continue present treatment. Reina Squires MD
[2018-03-01] MEDS: Albuterol-Ipratrop 3 mg / 0.5 (3 ml) UD IH SCH ×4 (02:13→21:10)
[2018-03-01] MEDS: Morphine 4 mg/ml ISec IVP PRN ×4 (03:32→23:35)
[2018-03-01] MEDS: Aztreonam 1 Gm in NS 100mL 100 ML IVPB SCH ×3 (06:43→22:50)
[2018-03-01] MEDS: Pantoprazole 40 mg EC Tab PO SCH (06:44)
[2018-03-01 07:16] LABS: HEMOGLOBIN 7.8 g/dL (14.0-18.0); MEAN CELL VOLUME 103.3 fl (80.0-105.0); MEAN CORPUSCULAR HGB CONC 35.8 g/dl (31.0-37.0); MEAN PLATELET VOLUME 10.2 fl (7.0-11.0); RBC 2.11 10^6/uL (3.5-6.1); RED CELL DISTRIBUTION WIDTH 21.6 % (11.5-14.5); WHITE BLOOD COUNT 14.2 10^3/ul (4.5-11.0)
[2018-03-01] MEDS: Arformoterol 15 mcg/2 ml Inh Sol IH SCH ×2 (07:34→21:10)
[2018-03-01] MEDS: Budesonide 0.5 mg/2 ml Inhal Susp UD IH SCH ×2 (07:34→21:10)
[2018-03-01 07:50] LABS: BLOOD UREA NITROGEN 16 mg/dL (7-21); CALCIUM 8.8 mg/dL (8.4-10.5); GFR NON-AFRICAN AMERICAN > 60
--- NOTE | 2018-03-01 08:25 | CON ---
DATE: 02/28/2018 The patient seen earlier today in room 360. CHIEF COMPLAINT: Fever of 103 times one-day duration. HISTORY OF PRESENT ILLNESS: A 37-year-old male with history of sickle cell disease, history of pneumonia, who was admitted with sickle cell crisis. The patient was admitted on the through the emergency room; however, today, the patient has a temperature of 103. Infectious Disease consultation requested. The patient has been in the hospital on fifth day, and the patient had a temperature of 103. He is having some mild shortness of breath and cough. No abdominal pain, diarrhea, or constipation. No dysuria or frequency. No headaches or blurry vision. PAST MEDICAL HISTORY: Significant for sickle cell disease, community-acquired pneumonia. PAST SURGICAL HISTORY: Significant for cholecystectomy, appendectomy, and splenectomy. ALLERGIES: THE PATIENT IS ALLERGIC TO CEFTRIAXONE, CEFOTAXIME. PHYSICAL EXAMINATION GENERAL: The patient is in bed, no acute distress. His , family members are surrounding him. VITAL SIGNS: Temperature of 103, blood pressure is 120/60, respiratory rate of 20, heart rate of 80. HEENT: Unremarkable. NECK: Supple. LUNGS: Decreased breath sounds. HEART: Normal S1, S2. ABDOMEN: Soft, nontender. No organomegaly. No rebound, no guarding, no masses. LABORATORY EXAMINATION: Reveals the patient has a white count of 12,300, hemoglobin of 8. Chemistries are noted, BUN of 12, creatinine of 0.7. Urinalysis is noted. Microbiology is noted. The patient had a CT of the chest which shows infiltrates. Chest x-ray is negative. ASSESSMENT AND PLAN: This is a 37-year-old male with sickle cell, now with sepsis, with community-acquired pneumonia, actually health-care associated pneumonia. We will order blood cultures, urine cultures, and urine for legionella, procalcitonin, methicillin-resistant Staphylococcus aureus screen, sputum cultures, and we will treat the patient with aztreonam and doxycycline. Pending initial panculture and workup results. Dano Jauregui MD
--- NOTE | 2018-03-01 10:57 | PN ---
DATE: 03/01/2018 SUBJECTIVE: The patient is in bed, in no acute distress, nontoxic. PHYSICAL EXAMINATION: VITAL SIGNS: On exam, temperature is 99-100, respiratory rate of 18. HEENT: Examination of HEENT is unremarkable. NECK: Supple. LUNGS: Have decreased breath sounds. HEART: Normal S1, S2. ABDOMEN: Soft. LABORATORY DATA: Laboratory examination reveals the patient's white count is up to 14,000, hemoglobin of 7, BUN of 16, creatinine of 0.8. Urinalysis is noted. Microbiology is reviewed. ASSESSMENT AND PLAN: A 37-year-old male who is known to me from previous admissions with history of sickle cell disease and history of community-acquired pneumonia in the past. Admitted now with sepsis with healthcare-associated pneumonia, on aztreonam, doxycycline day #2. His fevers appears to have been responding. We will check on the urine for Legionella antigen, procalcitonin and repeat pancultures. On doxycycline and aztreonam, day #2. Dano Jauregui MD
--- NOTE | 2018-03-01 22:47 | PN ---
DATE: 03/01/2018 PULMONARY PROGRESS NOTE REFERRING PHYSICIAN: Reina Squires MD. SUBJECTIVE: He is lying in the bed, head at 45 degrees. Feels better compared to yesterday. Family is at bedside. No more fever today. Pain is better with increased morphine but has a severe cough. No nausea, no vomiting, no diarrhea. No leg pain or leg swelling. PHYSICAL EXAMINATION: GENERAL: In no acute distress. VITAL SIGNS: Temperature is 98. Yesterday, T-max was 103. Heart rate is 92, respiratory rate is 20, blood pressure 94/57, pulse ox 91% on 2 liters nasal cannula. HEENT: Moist mucous membrane. No ulcer or thrush is noted. NECK: Supple. No JVD. LUNGS: Have a poor airflow, prolonged expiratory phase, wheezing. HEART: S1 and S2. ABDOMEN: Soft, nontender. No organomegaly. EXTREMITIES: No edema. NEUROLOGIC: Awake, alert, and follows simple commands. MEDICATIONS: He is on Azactam 1 g IV every 8 hours, Benadryl 25 mg every 8 hours p.r.n., Brovana inhaled twice a day, doxycycline 100 mg twice a day, DuoNeb every 6 hours [id number], folic acid 1 mg daily, hydroxyurea 500 mg three times a day, morphine 4 mg every 4 hours p.r.n., Protonix 40 mg daily, budesonide inhaled twice a day, Toradol 50 mg IVP every 8 hours, and Tylenol p.r.n. basis. LABORATORY DATA: Shows hemoglobin 7.8, hematocrit 21.8, WBC 14.2, platelet count is 255. Sodium 142, potassium 4.4, chloride 110, bicarbonate 26, BUN 16, creatinine 0.8, glucose is 86, calcium is 8.8. IMPRESSION AND PLAN: Sickle cell crisis with a acute chest syndrome, sepsis, anemia, and acute bronchitis. We will add a cough suppressor. May add Lyrica 25 mg twice a day, Tessalon Perles. Continue morphine. Continue antibiotics. We will add Solu-Medrol 40 mg twice a day. Follow up labs in the morning. Thank you and we will follow with you. Belkis Roy MD [facility] # [id number]
[2018-03-01] MEDS: MethylPREDNISolone 40 mg Vial IVP SCH (23:34)
[2018-03-02] MEDS: Albuterol-Ipratrop 3 mg / 0.5 (3 ml) UD IH SCH ×4 (02:20→20:05)
[2018-03-02] MEDS: Pantoprazole 40 mg EC Tab PO SCH (05:32)
[2018-03-02] MEDS: Aztreonam 1 Gm in NS 100mL 100 ML IVPB SCH ×3 (05:32→21:31)
[2018-03-02] MEDS: Arformoterol 15 mcg/2 ml Inh Sol IH SCH ×2 (07:41→20:05)
[2018-03-02] MEDS: Budesonide 0.5 mg/2 ml Inhal Susp UD IH SCH ×2 (07:42→20:05)
--- NOTE | 2018-03-02 08:18 | PN ---
DATE: 03/01/2018 SUBJECTIVE: The patient was seen and examined on the bedside on 03/01/2018. This progress note is for 03/01/2018. Still having shortness of breath and pressure in the chest. Father and sister are on the bedside. No fever. Pain is a little bit better and is coughing. No nausea, vomiting, diarrhea. No hematuria or hematochezia. PHYSICAL EXAMINATION: VITAL SIGNS: Temperature 98, T-max 103, heart rate 92, respiratory rate 20, blood pressure 94/57, pulse oximetry 91% on 2 L nasal cannula. HEENT: Head normocephalic, atraumatic. Eyes PERRLA. Extraocular muscles intact. Conjunctivae clear. Nose patent. Mucous membrane moist. NECK: Supple. No carotid bruit. No JVD or thyromegaly. CHEST: Bilaterally symmetrical. LUNGS: Have poor airflow. Prolonged expiratory phase, wheezing. ABDOMEN: Soft, nontender. No organomegaly. EXTREMITIES: No edema. No cyanosis. NEUROLOGICAL: The patient is awake and alert. Follows simple commands. MEDICATIONS: Azactam, Benadryl, Brovana, DuoNeb, hydroxyurea, morphine, Protonix, budesonide, Toradol, Tylenol. LABORATORY DATA: Hemoglobin 7.8, hematocrit 21.8, white blood cells 14.2, platelets 255. Sodium 142, potassium 4.4, BUN 16, creatinine 0.8, glucose 86, calcium 8.8. ASSESSMENT AND PLAN: Mr. Chalino Oquendo, 37-year-old male with sickle cell trait with acute chest syndrome, sepsis, anemia, acute bronchitis. Dr. Roy added cough suppressors . Continue morphine. Infectious Disease is on the case. Started Solu-Medrol. Discussion done with the family, especially sister Diane. She want to transfer the patient to [facility]. Talked to her to get accepting physician. Our Social Work will work with the insurance and we will plan. Meanwhile, continue present treatment. Reina Squires MD [facility]
[2018-03-02 09:01] LABS: HEMOGLOBIN 8.5 g/dL (14.0-18.0); MEAN CELL VOLUME 101.7 fl (80.0-105.0); MEAN CORPUSCULAR HEMOGLOBIN 36.2 pg (25.0-35.0); MEAN CORPUSCULAR HGB CONC 35.6 g/dl (31.0-37.0); MEAN PLATELET VOLUME 9.9 fl (7.0-11.0); RBC 2.35 10^6/uL (3.5-6.1); RED CELL DISTRIBUTION WIDTH 21.6 % (11.5-14.5); WHITE BLOOD COUNT 11.9 10^3/ul (4.5-11.0)
[2018-03-02 09:12] LABS: ALB/GLOB RATIO 1.2 (1.1-1.8); ALBUMIN 4.1 g/dL (3.0-4.8); ALT/SGPT 76 U/L (7-56); AST/SGOT 69 U/L (17-59); BLOOD UREA NITROGEN 13 mg/dL (7-21); CALCIUM 9.3 mg/dL (8.4-10.5); GFR NON-AFRICAN AMERICAN > 60
[2018-03-02] MEDS: MethylPREDNISolone 40 mg Vial IVP SCH ×2 (09:57→21:32)
[2018-03-02] MEDS: Morphine 4 mg/ml ISec IVP PRN ×3 (10:09→21:33)
--- NOTE | 2018-03-02 14:24 | PN ---
DATE: 03/02/2018 PHYSICAL EXAMINATION: GENERAL: The patient is in bed ,in no acute distress. VITAL SIGNS: With a temperature of 98, blood pressure is 117/70, respiratory rate 20, heart rate of 92. HEENT: Unremarkable. NECK: Supple. LUNGS: Have decreased breath sounds. HEART: Normal S1 and S2. ABDOMEN: Soft, nontender. LABORATORY EXAMINATION: Reveals the patient's white count is 14,200, hemoglobin of 7, and platelets of 255. BUN of 16, creatinine of 0.6, and procalcitonin 0.11. Urinalysis is noted. Serology is negative and microbiology reveals the blood cultures are negative. Urine cultures are negative. ASSESSMENT AND PLAN: He is a 37-year-old male with history of sickle cell disease, history of community-acquired pneumonia with sepsis, healthcare-associated pneumonia, aztreonam, doxycycline and day #3 with complete four to seven days of antibiotics thus far. Blood cultures are negative and urine cultures are negative and waiting for methicillin-resistant staphylococcus aureus screen and sputum cultures. We will follow with you. Dnao Jauregui MD
--- NOTE | 2018-03-02 15:39 | PN ---
DATE: 03/02/2018 PULMONARY PROGRESS NOTE REFERRING PHYSICIAN: eRina Squires MD. SUBJECTIVE: He is lying in the bed, head at 45 degrees. Father is at bedside. Feels better. Decreased cough. Decreased shortness of breath. Decreased pain. Still required morphine 4 mg every 4 hours. OBJECTIVE: GENERAL: In no acute distress. VITAL SIGNS: Temperature is 98, heart rate is 81, respiratory rate is 20, blood pressure 117/78, pulse ox 98% on 2 L nasal cannula. HEENT: Moist mucous membrane. Crowded airway. NECK: Supple. No JVD. LUNGS: Have a crackle. Prolonged expiratory phase with rhonchi. HEART: S1 and S2. ABDOMEN: Soft, nontender. No organomegaly. EXTREMITIES: No edema. NEUROLOGICAL: Awake and alert. Follows simple command. MEDICATIONS: He is on Azactam 1 g every 8 hours, Benadryl 25 mg three times a day p.r.n., Brovana inhaled twice a day, doxycycline 100 mg twice a day, DuoNeb every 6 hours and also folic acid 1 mg daily, hydroxyurea 500 mg three times a day, Lyrica 25 mg twice a day, morphine 4 mg every 4 hours p.r.n., Protonix 40 mg daily, Pulmicort inhaled twice a day, Solu-Medrol 40 mg every 12 hours, Tylenol p.r.n. basis. LABORATORY DATA: Shows hemoglobin 8.5, hematocrit 23.9, WBC 11.9, platelet count is 363. Sodium 140, potassium 4.4, chloride 109, bicarbonate 22, BUN 13, creatinine 0.7, glucose is 150, calcium 9.3, AST 69, ALT 76, alk phos is 146, albumin 3.5, procalcitonin is 0.11. Microbiology: Blood culture and urine culture, there is no growth. IMPRESSION AND PLAN: Sickle cell crisis with acute chest syndrome, multiple joint pain, anemia, probably has some obstructive lung disease. Responding well to steroid with cough And shortness of breath. Continue antibiotics as per Infectious Diseases. Continue pain management. Gastric and deep venous thrombosis prophylaxis. Has sequential compression device to lower extremity. Thank you and we will follow with you. Belkis Roy MD [facility] # [id number]
--- NOTE | 2018-03-02 23:29 | PN ---
DATE: 03/02/2018 SUBJECTIVE: The patient was seen and examined on the bedside, looking a bit better. Cough is better. Shortness of breath is better. Family is around. No fever. No chills. No headache. No dizziness. Chest tightness decreased. Pain is decreased, was still getting morphine 4 mg every 4 hours. PHYSICAL EXAMINATION: VITAL SIGNS: Temperature 98, heart rate 81, respiratory rate 20, blood pressure 117/78, pulse oximetry 98% on 2 L nasal cannula. HEENT: Head normocephalic, atraumatic. Eyes PERRLA. Extraocular muscles intact. Conjunctivae clear. Nose patent. Mucous membrane moist. NECK: Supple. No carotid bruit. No JVD or thyromegaly. LUNGS: Have crackles. Prolonged expiratory phase with rhonchi. HEART: S1 and S2 positive. ABDOMEN: Soft. No organomegaly. EXTREMITIES: No edema. No cyanosis. NEUROLOGICAL: The patient is awake and alert. Moving all 4 extremities. No focal deficits. MEDICATIONS: Azactam, Benadryl, Brovana, doxycycline, DuoNeb, hydroxyurea, Lyrica, morphine, Protonix, Pulmicort, Solu-Medrol, Tylenol. LABORATORY DATA: Hemoglobin 8.5, hematocrit 23.9, white blood cells 11.9, platelets 363. Sodium 140, potassium 4.4, BUN 13, creatinine 0.7, AST 59, ALT 76. Blood culture, urine cultures, there is no growth. ASSESSMENT AND PLAN: Mr. Chalino Oquendo, 37-year-old male has sickle cell crisis with acute chest syndrome; multiple joint pains; anemia, probably from obstructive lung disease. Responding well to steroid with cough medications and getting antibiotics. Continue antibiotics as per Infectious Disease. Continue pain management. Gastric and deep venous thrombosis prophylaxis. Has sequential compression devices to lower extremities. Discussion done with the patient and family. Feeling better. Reviewed Dr. Jauregui's and Dr. Roy's notes. According to Dr. Jauregui, the patient has community-acquired pneumonia with sepsis, healthcare-associated pneumonia. Today is day 3 of the antibiotics, has to complete 7 days. Waiting for methicillin-resistant Staphylococcus aureus screen and sputum cultures. We will follow up. Reina Squires MD [facility] # [id number]
[2018-03-03] MEDS: Morphine 4 mg/ml ISec IVP PRN ×3 (03:25→17:15)
[2018-03-03] MEDS: Albuterol-Ipratrop 3 mg / 0.5 (3 ml) UD IH SCH ×4 (03:31→20:46)
[2018-03-03] MEDS: Pantoprazole 40 mg EC Tab PO SCH (05:54)
[2018-03-03] MEDS: Aztreonam 1 Gm in NS 100mL 100 ML IVPB SCH ×3 (05:54→21:34)
[2018-03-03] MEDS: Budesonide 0.5 mg/2 ml Inhal Susp UD IH SCH ×2 (07:30→20:46)
[2018-03-03] MEDS: Arformoterol 15 mcg/2 ml Inh Sol IH SCH ×2 (07:30→20:46)
[2018-03-03] MEDS: MethylPREDNISolone 40 mg Vial IVP SCH ×2 (09:14→21:32)
--- NOTE | 2018-03-03 10:13 | PN ---
DATE: 03/03/2018 SUBJECTIVE: The patient admitted earlier today. The patient is seen earlier today in room 360. He is comfortable. No fevers. No chills. PHYSICAL EXAMINATION: VITAL SIGNS: On exam, temperature is 98, blood pressure is 111/60, respiratory rate of 18. HEENT: Examination of HEENT is unremarkable. NECK: Supple. LUNGS: Have decreased breath sounds. HEART: Normal S1, S2. ABDOMEN: Soft. LABORATORY DATA: Laboratory examination reveals a white count of 11,900, hemoglobin of 8, platelets of 363. Chemistries are noted. Urinalysis is noted. Serology is reviewed. Urine for Legionella antigen is negative. Blood cultures are negative. Nares MRSA is not detected. The urine culture is negative. Sputum cultures are pending. Review of orders reveals the patient to be on aztreonam and doxycycline. ASSESSMENT AND PLAN: A 37-year-old male, known to me from previous admissions with sickle cell disease, history of community-acquired pneumonia, admitted with sepsis with healthcare-associated pneumonia. On aztreonam and doxycycline day #4 today, would complete 4-7 days. Maybe able to discontinue the Azactam and complete with p.o. doxycycline to complete 7 days of p.o. doxycycline, today is day #4, upon discharge. Dano Jauregui MD
--- NOTE | 2018-03-03 22:09 | PN ---
DATE: 03/03/2018 PULMONARY PROGRESS NOTE REFERRING PHYSICIAN: Reina Squires MD. SUBJECTIVE: The patient is lying in the bed, head at 45 degrees. Family is at bedside. Feels much better. Decreased pain. Decreased cough. No nausea. No vomiting, diarrhea, leg pain or leg swelling. OBJECTIVE: GENERAL: In no acute distress. VITAL SIGNS: Temperature is 98, heart rate is 72, respiratory rate is 18, blood pressure 103/65, pulse ox 97% on room air. HEENT: Moist mucous membrane. No ulcer or thrush noted. NECK: Supple. No JVD. LUNGS: Have a better airflow with few crackles at the bases. HEART: S1 and S2. ABDOMEN: Soft, nontender. No organomegaly. EXTREMITIES: There is no edema. NEUROLOGICAL: Awake and alert. Follows simple command. MEDICATIONS: He is on Azactam 1 g IV every 8 hours, Benadryl 25 mg every 8 hours p.r.n., Brovana inhaled twice a day, doxycycline 100 mg twice a day, DuoNeb every 6 hours [id number], folic acid 1 mg daily, hydroxyurea 500 mg three times a day, Lyrica 25 mg twice a day, morphine 4 mg every 4 hours p.r.n., Protonix 40 mg daily, Pulmicort inhaled twice a day, Solu-Medrol 40 mg every 12 hours, Tylenol p.r.n. basis. LABORATORY DATA: Reviewed. No new lab is available since yesterday. IMPRESSION AND PLAN: Sickle cell crisis with acute chest syndrome, multiple joint and muscle involvement, anemia. This may be a component of obstructive lung disease. Clinically much improved. We will decrease morphine to 2 mg every 4 hours. Continue Lyrica. Antibiotics as per Infectious Diseases. Discontinue Solu-Medrol. Place on prednisone 20 mg. We will taper off in the next few days. Follow up labs in the morning. Thank you and we will follow with you. Belkis Roy MD
[2018-03-03] MEDS: Morphine 2 mg/ml ISec IVP PRN (22:39)
[2018-03-04] MEDS: Albuterol-Ipratrop 3 mg / 0.5 (3 ml) UD IH SCH ×4 (01:46→20:19)
--- NOTE | 2018-03-04 01:52 | PN ---
DATE: 03/03/2018 SUBJECTIVE: Patient is a 37-year-old male. Patient was seen and examined on the bedside on 03/03/2018, looking comfortable, feeling better. No fever. No chills. No nausea, vomiting, or diarrhea. No hematuria or hematochezia. No swelling of the leg. No chest pain. No palpitation. PHYSICAL EXAMINATION: VITAL SIGNS: Temperature 98, blood pressure 111/60, respiratory rate 18. HEENT: Head: Normocephalic, atraumatic. Eyes: PERRLA. Extraocular muscles intact. Conjunctivae clear. Nose patent. NECK: Supple. No carotid bruit, JVD, or thyromegaly. CHEST: Bilaterally symmetrical. HEART: S1 and S2 positive. LUNGS: Clear to auscultation. ABDOMEN: Soft. Bowel sounds present. No organomegaly. EXTREMITIES: No edema. No cyanosis. NEUROLOGIC: Patient is awake and alert. Moving all 4 extremities. No focal deficit. MEDICATIONS: Azactam, Benadryl, Brovana, doxycycline, DuoNeb, folic acid, hydroxyurea, Lyrica, morphine, Protonix, Pulmicort, Tylenol. LABORATORY DATA: White blood cells 11.9, hemoglobin 8.5, hematocrit 23.9, platelets 363. Sodium 140, potassium 4.4, BUN 13, creatinine 0.7, glucose 150. ASSESSMENT AND PLAN: Mr. Chalino Oquendo is a 37-year-old male with leukocytosis, anemia, history of hyperchloremia, hyperglycemia, abnormal liver function test. Urine for Legionella pneumophila antigen is negative. Came with sickle cell crisis, has previous admissions with sickle cell disease, history of community-acquired pneumonia, admitted with sepsis with healthcare associated pneumonia. On aztreonam and doxycycline day #4 today, will complete 4-7 days. May be able to discontinue Azactam and complete p.o. doxycycline to complete the 7 days of p.o. doxycycline, today is day 4. History of cholecystectomy, patient has a history of acute chest syndrome also, multiple joint pains, obstructive lung disease. Responding well to the steroids and antibiotics. Gastric and deep venous thrombosis prophylaxes. Has sequential compression devices to lower extremities. Discussion done with the patient. All questions answered. We will follow up. Reina Squires MD
[2018-03-04] MEDS: Aztreonam 1 Gm in NS 100mL 100 ML IVPB SCH ×3 (06:16→21:41)
[2018-03-04] MEDS: Pantoprazole 40 mg EC Tab PO SCH (06:16)
[2018-03-04 07:09] LABS: HEMOGLOBIN 8.6 g/dL (14.0-18.0); MEAN CORPUSCULAR HGB CONC 34.3 g/dl (31.0-37.0); MEAN PLATELET VOLUME 10.1 fl (7.0-11.0); RBC 2.39 10^6/uL (3.5-6.1); RED CELL DISTRIBUTION WIDTH 21.9 % (11.5-14.5); WHITE BLOOD COUNT 23.3 10^3/uL (4.5-11.0)
[2018-03-04] MEDS: Budesonide 0.5 mg/2 ml Inhal Susp UD IH SCH ×2 (07:53→20:19)
[2018-03-04] MEDS: Arformoterol 15 mcg/2 ml Inh Sol IH SCH ×2 (07:53→20:19)
[2018-03-04 07:55] LABS: BLOOD UREA NITROGEN 20 mg/dL (7-21); CALCIUM 9.7 mg/dL (8.4-10.5); GFR NON-AFRICAN AMERICAN > 60
[2018-03-04 08:39] VITALS: RESP 20; O2SAT 96
--- NOTE | 2018-03-04 14:32 | PN ---
DATE: 03/04/2018 PULMONARY PROGRESS NOTE REFERRING PHYSICIAN: Reina Squires MD SUBJECTIVE: He is lying in the bed, sleepy, arousable. Night was unremarkable. Feels better. Decreased pain. Decreased cough. No nausea. No vomiting, diarrhea, leg pain, or leg swelling. OBJECTIVE: GENERAL: In no acute distress. VITAL SIGNS: Temperature is 98, heart rate is 65, respiratory rate is 20, blood pressure 111/64, pulse ox 96% on room air. HEENT: Moist mucous membrane. No ulcer or thrush noted. NECK: Supple. No JVD. LUNGS: Better airflow with few rhonchi. HEART: S1 and S2. ABDOMEN: Soft, nontender. No organomegaly. EXTREMITIES: There is no edema. NEUROLOGIC: Sleepy, arousable. Follows simple command. MEDICATIONS: He is on Azactam 1 g IV every 8 hours, Benadryl 25 mg three times a day p.r.n., Brovana inhaled twice a day, doxycycline 100 mg twice a day, DuoNeb every 6 hours, folic acid 1 mg daily, hydroxyurea 500 mg three times a day, Lyrica 25 mg twice a day, morphine 2 mg every 4 hours p.r.n., Protonix 40 mg daily, Pulmicort inhaled twice a day, and Tylenol p.r.n. basis. LABORATORY DATA: Shows hemoglobin 8.6, hematocrit 25.1, WBC 23,000, and platelet count is 553. Sodium 142, potassium 4.8, chloride 107, bicarbonate 28. BUN 20, creatinine 0.7. Calcium is 9.7. Microbiology: Blood cultures and sputum cultures have been negative. IMPRESSION AND PLAN: Sickle cell crisis with acute chest syndrome, multiple joint and muscle involvement with pain; anemia; chronic lung disease. Pulmonary point of view, doing much better. Leukocytosis probably secondary to steroid that had been discontinued last night. Continue antibiotics as per Infectious Disease. May switch to p.o. antibiotics and work on discharge planning. Opiate can be changed to p.o. Out of bed to chair. Should get PFT upon discharge as outpatient. Also, he should have a sleep study to rule out hypoxemia. Does have snoring, daytime sleepiness. Thank you and we will follow with you. Belkis Roy MD [facility] # [id number]
[2018-03-04] MEDS: Morphine 2 mg/ml ISec IVP PRN (18:20)
--- NOTE | 2018-03-04 20:30 | PN ---
DATE: 03/04/2018 SUBJECTIVE: The patient is in bed in no acute distress. PHYSICAL EXAMINATION VITAL SIGNS: On exam, temperature is 97, blood pressure is 111/60, respiratory rate of 18 and heart rate of 72. HEENT: Unremarkable. NECK: Supple. LUNGS: Have decreased breath sounds. HEART: Normal S1 and S2. ABDOMEN: Soft and nontender. LABORATORY EXAMINATION: Reveals a white count of 23,000 and hemoglobin of 8. BUN of 20, creatinine of 0.7, alk phos is 146. Serology is noted. Microbiology reveals the blood cultures are negative, urine cultures are negative and sputum cultures are pending. MEDICATIONS: Review of orders reveals the patient to be on aztreonam and doxycycline. The patient also was on steroids. The patient was on Solu-Medrol, which may explain the white count of 23,000. ASSESSMENT AND PLAN: This is a 37-year-old male known to me from multiple admissions in the past with sickle cell disease, history of community-acquired pneumonia, admitted this time with sepsis, healthcare-associated pneumonia with MULTIPLE ALLERGIES. Today is day #5 of Azactam and doxycycline. May discontinue the Azactam upon discharge and complete 7 days of p.o. doxycycline. The patient appears to be improving. White count of 23,000, most likely secondary to Solu-Medrol. He is much improved and he is requesting discharge. He has been afebrile for 48 hours. Dano Jauregui MD
[2018-03-04] MEDS ORDERED: Morphine 2 mg/ml ISec IVP PRN (21:55)
--- NOTE | 2018-03-04 22:07 | PN ---
DATE: 03/04/2018 SUBJECTIVE: The patient was seen and examined on the bedside on 03/04/2018, looking comfortable. No nausea, vomiting, diarrhea. No hematuria or hematochezia. No swelling of the legs. No chest pain. No palpitation. No headache. No dizziness. Cough is better. Pain is better. PHYSICAL EXAMINATION: VITAL SIGNS: Temperature 98, heart rate 65, respiratory rate 20, blood pressure 111/64. pulse oximetry noted on room air. HEENT: Head normocephalic, atraumatic. Eyes PERRLA. Extraocular muscles intact. Conjunctivae clear. Nose patent. Mucous membrane moist. NECK: Supple. No carotid bruit. No JVD. No thyromegaly. CHEST: Bilaterally symmetrical. HEART: S1 and S2 positive. LUNGS: Better airflow with few rhonchi. ABDOMEN: Soft, nontender. No organomegaly. EXTREMITIES: No edema. No cyanosis. NEUROLOGICAL: The patient is awake and alert. Moving all 4 extremities. No focal deficits. MEDICATIONS: Azactam, Benadryl, Brovana, doxycycline, DuoNeb, hydroxyurea, Lyrica, morphine, Protonix, Pulmicort, steroids tapering doses. LABORATORY DATA: Hemoglobin 8.6, hematocrit 25.1, white blood cells 23,000, platelets 553. Sodium 142, potassium 4.8, BUN 20, creatinine 0.7. ASSESSMENT AND PLAN: Mr. Chalino Oquendo, 37-year-old male with sickle cell crisis, acute chest syndrome, multiple joint and muscle involvement with pain, anemia, chronic obstructive pulmonary disease, leukocytosis, probably secondary to steroid and had been discontinued last night. Continue antibiotics as per Infectious Disease. According to Infectious Disease, maybe we will switch antibiotic to p.o. Should get PFT as outpatient. Gastrointestinal and deep venous thrombosis prophylaxis. Discussion done with the patient and the patient's girlfriend and the patient's nursing staff. Repeat labs. We will follow up. Reina Squires MD [facility]
[2018-03-05] MEDS: Albuterol-Ipratrop 3 mg / 0.5 (3 ml) UD IH SCH ×2 (02:41→07:35)
[2018-03-05] MEDS: Aztreonam 1 Gm in NS 100mL 100 ML IVPB SCH (05:06)
[2018-03-05] MEDS: Pantoprazole 40 mg EC Tab PO SCH (05:07)
[2018-03-05] MEDS: Budesonide 0.5 mg/2 ml Inhal Susp UD IH SCH (07:35)
[2018-03-05] MEDS: Arformoterol 15 mcg/2 ml Inh Sol IH SCH (07:35)
[2018-03-05 07:52] LABS: BASO # 0.01 K/mm3 (0.0-2.0); HEMOGLOBIN 9.2 g/dL (14.0-18.0); MEAN CELL VOLUME 107.6 fl (80.0-105.0); MEAN CORPUSCULAR HEMOGLOBIN 36.7 pg (25.0-35.0); MEAN CORPUSCULAR HGB CONC 34.1 g/dl (31.0-37.0); MEAN PLATELET VOLUME 10.2 fl (7.0-11.0); PLATELET COUNT 667 10^3/uL (120.0-450.0); RBC 2.51 10^6/uL (3.5-6.1); RED CELL DISTRIBUTION WIDTH 21.8 % (11.5-14.5); WHITE BLOOD COUNT 20.3 10^3/uL (4.5-11.0)
[2018-03-05 08:30] LABS: BLOOD UREA NITROGEN 21 mg/dL (7-21); CALCIUM 9.4 mg/dL (8.4-10.5); GFR NON-AFRICAN AMERICAN > 60
[2018-03-05 09:26] VITALS: BP 104/59; PULSE 62; TEMP 97.5
[2018-03-05 09:43] LABS: CORRECTED WBC 17.4 K/mm3 (4.5-11.0); LYMPHOCYTE 10 % (22.0-35.0); MONOCYTE 6 % (1.0-6.0); NEUTROPHIL 84 % (50.0-70.0); NUCLEATED RED BLOOD CELL 17 %
[2018-03-05 09:44] LABS: PLATELET ESTIMATE HIGH (NORMAL)
--- NOTE | 2018-03-05 13:17 | PN ---
DATE: 03/05/2018 SUBJECTIVE: The patient is in bed in no acute distress, was seen earlier today, awake and alert. He was seen earlier this morning in room 360. PHYSICAL EXAMINATION: VITAL SIGNS: On exam, temperature is 97, blood pressure is 104/60, respiratory rate of 18. HEENT: Examination of HEENT is unremarkable. NECK: Supple. LUNGS: Have decreased breath sounds. HEART: Normal S1, S2. ABDOMEN: Soft, nontender. LABORATORY EXAMINATION: Reviewed. ASSESSMENT AND PLAN: A 37-year-old male with sickle cell disease, admitted with sepsis, healthcare-associated pneumonia, multiple allergies, today is day #6 of Azactam and doxycycline, may complete with p.o. doxycycline. The patient's cultures are negative and the patient's white count are down to 20,000. He had been on steroids clinically, doing very well as of early this morning. Dano Jauregui MD
== END 2018-03-05 11:49 | disposition home or self-care (01) | DRG 811 ==
LOC: ED 13:35 → 3RNO 15:59 → ERH 15:59 → EDLOC 15:59 → ED 16:05 → 3RNO 18:05 → UNDOFXERSVC 18:05 → ED 18:05
PROVIDERS: ADMIT Internal Medicine; ATTEND Internal Medicine
PROC: 30233N1 Transfusion of Nonautologous Red Blood Cells into Peripheral Vein, Percutaneous Approach (ICD-10-PCS; principal; 2018-02-26)
DX: D57.01 Hb-SS disease with acute chest syndrome (principal); A41.9 Sepsis, unspecified organism; J18.9 Pneumonia, unspecified organism; J44.0 Chronic obstructive pulmonary disease with (acute) lower respiratory infection; J20.9 Acute bronchitis, unspecified; Y95 Nosocomial condition; E87.8 Other disorders of electrolyte and fluid balance, not elsewhere classified; D72.829 Elevated white blood cell count, unspecified; T38.0X5A Adverse effect of glucocorticoids and synthetic analogues, initial encounter; R94.5 Abnormal results of liver function studies; R05 Cough; Z90.81 Acquired absence of spleen